=== PATIENT | female | born 1995 | race African-American/Black ===

== ENCOUNTER 2017-06-18 00:19 | Emergency (ER) | payer OTHER ==
[~2017-06-18] VITALS: Ht 167.6 cm; Wt 68.3 kg
[2017-06-18 00:21] VITALS: BP 101/66
[2017-06-18] MEDS ORDERED: LIDOCAINE-MPF 1%, 5ML ONE (00:46)
== END 2017-06-18 01:35 | disposition home or self-care (01) ==
LOC: ED 01:20
DX: N76.4 Abscess of vulva (principal)
CPT/HCPCS: 56405; 99284